=== PATIENT | male | born 1990 | race Caucasian/White ===

== ENCOUNTER 2018-03-26 20:36 | Emergency (ER) | payer SELFPAY ==
[2018-03-26 20:48] VITALS: BP 119/74
[2018-03-26] MEDS ORDERED: Sodium Chloride 0.9% 5 ML Syringe FLUSH PRN (21:12)
[2018-03-26] MEDS: Sodium Chloride 0.9% 1,000 ML IV ONE (21:18)
--- NOTE | 2018-03-26 21:18 | EDM.PDOC ---
ED HPI GENERAL MEDICAL PROBLEM - General Chief Complaint: Back Pain or Injury Stated Complaint: LOWER BACK PAIN Time Seen by Provider: 03/26/18 21:00 Source of Information: Reports: Patient History Limitations: Reports: No Limitations - History of Present Illness INITIAL COMMENTS - FREE TEXT/NARRATIVE: 27 YO WM presents to ER with sudden onset right lower back pain x 3 hours. 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 Pt denies any known injury but states with movement he notices the pain becomes worse. Pt denies any dysuria, frequency or urgency. No previous history of kidney stones or low back pain/injury. Pt denies any fever/chills or N/V, and denies any radiating pain to leg or testicles. Onset: Today, Sudden Onset Date: 03/26/18 Onset Time: 18:00 Duration: Colic Location: Reports: Back. Denies: Lower Extremity, Left, Lower Extremity, Right , Radiates to Quality: Reports: Ache Severity: Moderate Improves with: Reports: None Worsens with: Reports: Movement Associated Symptoms: Reports: No Other Symptoms Right Lower Back Pain Score (Numeric/FACES): 10 - Related Data Allergies Allergy/AdvReac Type Severity Reaction Status Date / Time No Known Drug Allergies Allergy Cannot Verified 03/26/18 20:46 Remember Home Meds: Home Meds Cyclobenzaprine [Flexeril] 10 mg PO TID PRN #10 tab 03/26/18 [Rx] Ibuprofen [Motrin] 800 mg PO Q8HR #15 tablet 03/26/18 [Rx] traMADol HCl [Ultram] 50 mg PO Q8HR PRN #10 tablet 03/26/18 [Rx] Social & Family History - Tobacco Use Smoking Status *Q: Current Every Day Smoker Years of Tobacco use: 8 Packs/Tins Daily: 1 - Caffeine Use Caffeine Use: Reports: Energy Drinks - Recreational Drug Use Recreational Drug Use: No ED ROS GENERAL - Review of Systems Review Of Systems: See Below Constitutional: Reports: No Symptoms HEENT: Reports: No Symptoms Respiratory: Reports: No Symptoms Cardiovascular: Reports: No Symptoms Endocrine: Reports: No Symptoms GI/Abdominal: Reports: No Symptoms : Reports: No Symptoms Musculoskeletal: Reports: Back Pain Skin: Reports: No Symptoms Neurological: Reports: No Symptoms Psychiatric: Reports: No Symptoms Hematologic/Lymphatic: Reports: No Symptoms Immunologic: Reports: No Symptoms ED EXAM,LOWER BACK PAIN/INJURY - Physical Exam Exam: See Below Exam Limited By: No Limitations General Appearance: Alert, WD/WN, No Apparent Distress Eye Exam: Bilateral Eye: PERRL Head: Atraumatic, Normocephalic Neck: Normal Inspection, Supple, Non-Tender, Full Range of Motion Respiratory/Chest: No Respiratory Distress, Lungs Clear, Normal Breath Sounds, No Accessory Muscle Use, Chest Non-Tender Cardiovascular: Normal Peripheral Pulses, Regular Rate, Rhythm, No Edema, No Gallop, No JVD, No Murmur, No Rub GI/Abdominal: Normal Bowel Sounds, Soft, Non-Tender, No Organomegaly, No Distention, No Abnormal Bruit, No Mass (Male) Exam: No Hernia, Normal Inspection Back Exam: Full Range of Motion, CVA Tenderness (R), Muscle Spasm. No: Paraspinal Tenderness, Vertebral Tenderness Extremities: Normal Inspection, Normal Range of Motion, Non-Tender, No Pedal Edema, Normal Capillary Refill Neurological: Alert, Normal Mood/Affect, Normal Dorsiflexion, CN II-XII Intact, Normal Plantar Flexion, Normal Gait, Normal Reflexes, No Motor/Sensory Deficits , Oriented x 3 Psychiatric: Normal Affect, Normal Mood Skin Exam: Warm, Dry, Intact, Normal Color, No Rash Lymphatic: No Adenopathy Course - Vital Signs Last Recorded V/S: Last Vital Signs Temp 36.6 C 03/26/18 20:40 Pulse 99 03/26/18 20:40 Resp 16 03/26/18 20:40 BP 119/74 03/26/18 20:40 Pulse Ox 95 03/26/18 20:40 - Orders/Labs/Meds Orders: Active Orders 24 hr Category Date Time Status Peripheral IV Care [RC] . DIRECTED Care 03/26/18 21:12 Active Lumbar Spine 2 or 3V [CR] Stat Exams 03/26/18 21:12 Ordered BASIC METABOLIC PANEL,BMP [CHEM] Stat Lab 03/26/18 21:13 Received URINALYSIS W/MICROSCOPIC [UA W/MICROSCOPIC] [URIN] Stat Lab 03/26/18 20:50 Ordered Sodium Chloride 0.9% [Normal Saline] 1,000 ml Med 03/26/18 21:12 Active IV .BOLUS Sodium Chloride 0.9% [Syrex Flush] Med 03/26/18 21:12 Active 5 ml FLUSH Q8HR PRN Peripheral IV Insertion Adult [OM.PC] Routine Oth 03/26/18 21:12 Ordered Medication Orders Sodium Chloride (Normal Saline) 1,000 mls @ 999 mls/hr IV .BOLUS ONE Stop: 03/26/18 22:12 Last Admin: 03/26/18 21:18 Dose: 999 mls/hr Sodium Chloride (Syrex Flush) 5 ml FLUSH Q8HR PRN PRN Reason: Keep Vein Open Labs: Laboratory Tests 03/26/18 03/26/18 Range/Units 20:50 21:13 WBC 7.7 (5.0-10.0) 10^3/uL RBC 4.88 (4.50-6.00) 10^6/uL Hgb 15.3 (13.0-17.0) g/dL Hct 45.6 (40.0-52.0) % MCV 93.4 H (82.0-92.0) fL MCH 31.4 H (27.0-31.0) pg MCHC 33.6 (32.0-36.0) g/dL RDW 12.3 (11.5-14.5) % Plt Count 237 (150-300) 10^3/uL MPV 8.1 (7.4-10.4) fL Neut % (Auto) 48.6 L (50.0-70.0) % Lymph % (Auto) 38.2 (20.0-40.0) % [place] % (Auto) 9.4 H (2.0-8.0) % Eos % (Auto) 3.3 H (1.0-3.0) % Baso % (Auto) 0.5 (0.0-1.0) % Neut # (Auto) 3.8 (2.5-7.0) 10^3/uL Lymph # (Auto) 2.9 (1.0-4.0) 10^3/uL [place] # (Auto) 0.7 (0.1-0.8) 10^3/uL Eos # (Auto) 0.3 (0.1-0.3) 10^3/uL Baso # (Auto) 0.0 (0.0-0.1) 10^3/uL Specimen Type Urinvoid Urine Color Yellow (YELLOW) Urine Appearance Clear (CLEAR) Urine pH 5.5 (5.0-9.0) Ur Specific [place] >= 1.030 (1.005-1.030) Urine Protein Negative (NEGATIVE) mg/dL Urine Glucose (UA) Negative (NEGATIVE) mg/dL Urine Ketones Negative (NEGATIVE) mg/dL Urine Occult Blood Negative (NEGATIVE) Urine Nitrite Negative (NEGATIVE) Urine Bilirubin Negative (NEGATIVE) Urine Urobilinogen 0.2 (0.2-1.0) E.U./dL Ur Leukocyte Esterase Negative (NEGATIVE) Urine RBC 0-5 /HPF Urine WBC 0-5 /HPF Ur Epithelial Cells Rare /LPF Urine Bacteria Few (NONE TO FEW) /HPF Meds: Medications Generic Name Dose Route Start Last Admin Trade Name Freq PRN Reason Stop Dose Admin Sodium Chloride 1,000 mls @ 999 mls/hr 03/26/18 21:12 03/26/18 21:18 Normal Saline IV 03/26/18 22:12 999 mls/hr .BOLUS ONE Administration Sodium Chloride 5 ml 03/26/18 21:12 Syrex Flush FLUSH Q8HR PRN Keep Vein Open Discontinued Medications Generic Name Dose Route Start Last Admin Trade Name Freq PRN Reason Stop Dose Admin Ketorolac Tromethamine 30 mg 03/26/18 21:12 03/26/18 21:21 Toradol IVPUSH 03/26/18 21:13 30 mg ONETIME ONE Administration - Radiology Interpretation Free Text/Narrative:: Lumbar spine- NAD Departure - Departure Time of Disposition: 21:45 Disposition: Home, Self-Care 01 Condition: Good Clinical Impression: Back pain Qualifiers: Back pain location: low back pain Back pain laterality: right Sciatica presence : without sciatica - Discharge Information Prescriptions: Ibuprofen [Motrin] 800 mg PO Q8HR #15 tablet traMADol HCl [Ultram] 50 mg PO Q8HR PRN #10 tablet PRN Reason: Pain Cyclobenzaprine [Flexeril] 10 mg PO TID PRN #10 tab PRN Reason: Muscle Spasm Instructions: Back Pain, Adult, [id number] Referrals: PCP,Not In Area [Primary Care Provider] - Forms: ED Department Discharge Additional Instructions: 1. discharge home 2. Ultram 50mg PO Q6 PRN #10 3. Flexeril 10mg PO Q8 PRN #10 4. Motrin 800mg PO Q8 #15 5. heat to back 6. follow up with PCP in [place] 7. return to ER for worsening symptoms - My Orders Last 24 Hours: My Active Orders 03/26/18 20:50 URINALYSIS W/MICROSCOPIC [UA W/MICROSCOPIC] [URIN] Stat 03/26/18 21:12 Peripheral IV Care [RC] . DIRECTED Lumbar Spine 2 or 3V [CR] Stat Sodium Chloride 0.9% [Normal Saline] 1,000 ml IV .BOLUS Sodium Chloride 0.9% [Syrex Flush] 5 ml FLUSH Q8HR PRN Peripheral IV Insertion Adult [OM.PC] Routine 03/26/18 21:13 BASIC METABOLIC PANEL,BMP [CHEM] Stat - Assessment/Plan Last 24 Hours: My Active Orders 03/26/18 20:50 URINALYSIS W/MICROSCOPIC [UA W/MICROSCOPIC] [URIN] Stat 03/26/18 21:12 Peripheral IV Care [RC] . DIRECTED Lumbar Spine 2 or 3V [CR] Stat Sodium Chloride 0.9% [Normal Saline] 1,000 ml IV .BOLUS Sodium Chloride 0.9% [Syrex Flush] 5 ml FLUSH Q8HR PRN Peripheral IV Insertion Adult [OM.PC] Routine 03/26/18 21:13 BASIC METABOLIC PANEL,BMP [CHEM] Stat Assessment:: 1. Low back strain Plan: 1. discharge home 2. Ultram 50mg PO Q6 PRN #10 3. Flexeril 10mg PO Q8 PRN #10 4. Motrin 800mg PO Q8 #15 5. heat to back 6. follow up with PCP in [place] 7. return to ER for worsening symptoms
[2018-03-26] MEDS: Ketorolac 30 MG/ML SDV IVPUSH ONE (21:21)
[2018-03-26] MEDS ORDERED: traMADol 50 MG Tab PO PRN (21:46)
[2018-03-26] MEDS ORDERED: traMADol 50 MG Tab PO ONE (21:50)
[2018-03-27 12:36] LABS: CHLORIDE,CL 106 mmol/L (98-115); SODIUM,NA 139 mmol/L (136-145)
== END 2018-03-26 21:55 | disposition home or self-care (01) ==
LOC: KA.ED 20:36
DX: M54.41 Lumbago with sciatica, right side (principal); F17.210 Nicotine dependence, cigarettes, uncomplicated
CPT/HCPCS: 72100; 80048; 81001; 85025; 96361; 96374; 99283; J1885; J7030